=== PATIENT | female | born 1990 | race Hispanic/Latino ===

== ENCOUNTER 2018-05-06 09:34 | Outpatient (CLI) | payer BC | END 2018-05-06 09:35 | disposition home or self-care (01) | LOC: C.LAB 09:34 ==

== ENCOUNTER 2018-05-06 09:46 | Outpatient (CLI) | payer BC | END 2018-05-06 09:47 | disposition home or self-care (01) | LOC: C.LAB 09:46 | DX: E03.9 Hypothyroidism, unspecified (principal); E55.9 Vitamin D deficiency, unspecified ==